=== PATIENT | female | born 1950 | race Two or more races ===

== ENCOUNTER → 2018-11-12 | Outpatient (CLI) | payer BC ==
[2016-08-24 03:31] VITALS: BP 133/61
[~2018-11-12] MED LIST: ACET325T9 PO; ALEN70TA3 PO; AMLO5TAB10 PO; AMLO5TAB4 PO; BUDE10.2 IH; CALC-31 PO; CHOL20009 PO; HYDR-3165 PO; LISI1TAB7 PO; MECL25TA3 PO; MONT10TA49 PO; NAPR-683 PO; OMEP20TA63 PO; PIMO1TAB PO; VENTOLIN HFA18 GM INH; [UNRECOGNIZED DRUG - CODE] PO
--- NOTE | 2018-11-12 17:25 | KCIC ---
EXAM: AP, oblique and lateral views of the right ankle AP, oblique and lateral views of the right foot DATE: 11/12/2018 12:00 AM INDICATION: Polyarthralgia, severe right foot and ankle pain since July. COMPARISON: No Prior FINDINGS: No evidence of acute fracture or dislocation. Ankle mortise is congruent. Talar dome is intact. Changes of prior hallux valgus surgery with bunionectomy are seen. Mild lateral subluxation of the hallux MTP sesamoids. Hallux MTP joint space narrowing with small associated osteophytes. Otherwise, Joint spaces are preserved without significant degenerative/proliferative change. IMPRESSION: 1. Changes of prior hallux valgus surgery with associated bunionectomy, healed. 2. Mild hallux MTP joint degenerative change. 3. No evidence of acute fracture or dislocation. Electronically signed by: Tai Grajeda MD (11/12/2018 5:20 PM) [facility]
== END | disposition home or self-care (01) ==
LOC: KCIC 11:47
PROVIDERS: ATTEND Family Medicine
DX: M19.071 Primary osteoarthritis, right ankle and foot (principal); M20.11 Hallux valgus (acquired), right foot
CPT/HCPCS: 73610; 73630

== ENCOUNTER → 2022-02-15 | Outpatient (CLI) | payer BC ==
[2016-08-24 03:31] VITALS: BP 133/61
[~2022-02-15] MED LIST changes: +AMLO-186 PO; -AMLO5TAB10 PO; +LISI1TAB39 PO; -LISI1TAB7 PO; +MECL-75 PO; -MECL25TA3 PO
--- NOTE | 2022-02-15 17:30 | CARD ---
MR#: [id number] Date of Study: 02/15/2022 Ordering Physician: WYATT BOYER, Referring Physician: WYATT BOYER, Tech: Cyndie Marques [facility] APPROVED REPORT EXAM: Two-dimensional and M-mode echocardiogram with Doppler and color Doppler. Other Information Quality : AverageHR: 77bpm Rhythm : NSR INDICATION Dyspnea RISK FACTORS Hypertension Obesity 2D DIMENSIONS RVDd3.7 (2.9-3.5cm)Left Atrium(2D)3.5 (1.6-4.0cm) IVSd1.0 (0.7-1.1cm)Aortic Root(2D)3.2 (2.0-3.7cm) LVDd4.7 (3.9-5.9cm)LVOT Diameter2.0 (1.8-2.4cm) PWd0.9 (0.7-1.1cm)LVDs2.5 (2.5-4.0cm) FS (%) 46.0 %SV78.9 ml Aortic Valve AoV Peak Noah.116.9cm/sAoV VTI25.9cm AO Peak GR.5.5mmHgLVOT Peak Noah.101.3cm/s AO Mean GR.3mmHgAVA (VMAX)2.79cm2 Mitral Valve MV E Adwspryb96.3cm/sMV DECEL [id number] MV A Ehqkbdxw729.5cm/sE/A Ratio0.6 Pulmonary Valve PV Peak Qvjyxejs647.7cm/s Tricuspid Valve TR P. Ufnuttvq155rb/sTR Peak Gr.29mmHg LEFT VENTRICLE The left ventricle is normal size. There is normal left ventricular wall thickness. The left ventricu lar systolic function is normal and the ejection fraction is within normal range. LV ejection fracti on is 55 to 60%. There is normal LV segmental wall motion. Transmitral Doppler flow pattern is Grade I-abnormal relaxation pattern. RIGHT VENTRICLE The right ventricle is normal size. There is normal right ventricular wall thickness. The right ventr icular systolic function is normal. ATRIA The left atrium size is normal. The right atrium size is normal. The interatrial septum is intact wit h no evidence for an atrial septal defect or patent foramen ovale as noted on 2-D or Doppler imaging. AORTIC VALVE The aortic valve is normal in structure and function. Doppler and Color Flow revealed no significant aortic regurgitation. There is no significant aortic valvular stenosis. MITRAL VALVE The mitral valve is normal in structure and function. There is no evidence of mitral valve prolapse. There is no mitral valve stenosis. Doppler and Color-flow revealed mild mitral regurgitation. TRICUSPID VALVE The tricuspid valve is normal in structure and function. Doppler and Color Flow revealed mild tricusp id regurgitation. Estimated PAP 32 mmHg. There is no tricuspid valve stenosis. PULMONIC VALVE The pulmonary valve is normal in structure and function. Doppler and Color Flow revealed mild pulmoni c valvular regurgitation. GREAT VESSELS The aortic root is normal in size. The ascending aorta is normal in size. The IVC is normal in size a nd collapses >50% with inspiration. PERICARDIAL EFFUSION There is a trace to small pericardial effusion with no evidence of hemodynamic significance. Critical Notification Critical Value: No <Conclusion> The left ventricle is normal size. The left ventricular systolic function is normal and the ejection fraction is within normal range. LV ejection fraction is 55 to 60%. Doppler and Color Flow revealed no significant aortic regurgitation. There is no significant aortic valvular stenosis. Doppler and Color-flow revealed mild mitral regurgitation. Doppler and Color Flow revealed mild tricuspid regurgitation. Estimated PAP 32 mmHg. Signed by : Jordan Goldberg MD Electronically Approved : 02/15/2022 17:29:31
== END ==
LOC: ECHO 09:52
PROVIDERS: ATTEND Internal Medicine Cardiovascular Disease
DX: I08.8 Other rheumatic multiple valve diseases (principal); R06.00 Dyspnea, unspecified
CPT/HCPCS: 93306; C8929

== ENCOUNTER 2022-03-23 07:01 | Outpatient (CLI) | payer BC ==
[2022-03-23] VITALS (11 sets, daily range): BP systolic 82–138; BP diastolic 54–89
[~2022-03-23] VITALS: Ht 149.9 cm; Wt 60.0 kg
[2022-03-23] MEDS ORDERED: LIDOCAINE 1% Multi-Dose 20 ML VIAL. ONE (07:34)
[2022-03-23] MEDS ORDERED: HEPARIN for ARTERIAL LINE 1,500 ML ONE (07:34)
[2022-03-23] MEDS ORDERED: IODIXANOL 320 MG/ML 100 ML VIAL. ONE (07:35)
[2022-03-23] MEDS ORDERED: FEXO180T81 PO (07:59)
[2022-03-23] MEDS ORDERED: CETI10TA16 PO (07:59)
[2022-03-23] MEDS ORDERED: FAMO40TA4 PO (07:59)
[2022-03-23] MEDS ORDERED: MULT-496 PO (07:59)
[2022-03-23] MEDS ORDERED: LOSA-73 PO (07:59)
[2022-03-23] MEDS ORDERED: [UNRECOGNIZED DRUG - OTHER] PO (07:59)
[2022-03-23] MEDS ORDERED: ZINC50TA39 PO (07:59)
[2022-03-23] MEDS ORDERED: CHOL10004 PO (07:59)
[2022-03-23] MEDS ORDERED: BUDE10.7 IH (07:59)
[2022-03-23] MEDS ORDERED: GABA-585 PO (07:59)
[2022-03-23] MEDS ORDERED: VITA0.4T4 PO (07:59)
[2022-03-23] MEDS ORDERED: CALC500T54 PO (07:59)
[2022-03-23] MEDS ORDERED: OMAL150V SQ (07:59)
[2022-03-23] MEDS ORDERED: fentaNYL PF VIAL 100 MCG/2 ML VIAL IV ONE (08:15)
[2022-03-23] MEDS ORDERED: LIDOCAINE 1% PF 30 ML VIAL. INJ ONE (08:15)
[2022-03-23] MEDS ORDERED: MIDAZOLAM HCL/PF 2 MG/2 ML VIAL. IV ONE (08:15)
[2022-03-23 08:19] LABS: BASO # 0.1 x10^3/uL (0.0-0.2); BASO % 1 % (0-3); EOS # 0.5 x10^3/uL (0.0-0.7); EOS % 8 % (0-3); HEMATOCRIT 41.7 % (36.0-47.0); HEMOGLOBIN 13.8 g/dL (12.0-15.5); LYMPH # 1.7 x10^3/uL (1.0-4.8); LYMPH % 29 % (24-48); MEAN CORPUSCULAR HEMOGLOBIN 30 pg (25-35); MEAN CORPUSCULAR HGB CONC 33 g/dL (31-37); MEAN CORPUSCULAR VOLUME 90 fL (79-100); MONO # 0.6 x10^3/uL (0.0-1.1); MONO % 11 % (0-9); NEUT # 3.1 x10^3/uL (1.8-7.7); NEUT % 52 % (31-73); PLATELET COUNT 267 x10^3/uL (140-400); RED BLOOD COUNT 4.65 x10^6/uL (3.50-5.40); RED CELL DISTRIBUTION WIDTH 13.8 % (11.5-14.5); WHITE BLOOD COUNT 5.9 x10^3/uL (4.0-11.0)
[2022-03-23] MEDS ORDERED: HEPARIN for IV BOLUS 10,000 UNIT/10 ML VIAL. ONE (08:21)
[2022-03-23] MEDS ORDERED: VERAPAMIL 5 MG/2 ML VIAL. ONE (08:21)
[2022-03-23] MEDS ORDERED: NITROGLYCERIN 200 MCG/2 ML SYRINGE FOR CATH/VASC LAB. ONE ×2 (08:21→09:33)
[2022-03-23] MEDS ORDERED: HEPARIN for IV BOLUS 10,000 UNIT/10 ML VIAL. IART ONE (08:30)
[2022-03-23] MEDS ORDERED: IODIXANOL 320 MG/ML 100 ML VIAL. IART ONE (08:30)
[2022-03-23] MEDS ORDERED: VERAPAMIL 5 MG/2 ML VIAL. IART ONE (08:30)
[2022-03-23] MEDS ORDERED: NITROGLYCERIN 200 MCG/2 ML SYRINGE FOR CATH/VASC LAB. IART ONE (08:30)
[2022-03-23 08:31] LABS: PROTHROMBIN TIME PATIENT 12.8 SEC (11.7-14.0)
[2022-03-23 08:32] LABS: CALCIUM 9.3 mg/dL (8.5-10.1); CREATININE 0.6 mg/dL (0.6-1.0); GFR 98.8; POTASSIUM 4.1 mmol/L (3.5-5.1)
[2022-03-23] MEDS ORDERED: CONTRAST GIVEN. MC PRN (08:45)
[2022-03-23] MEDS ORDERED: IV NORMAL SALINE 500ML BAG 500 ML IV ONE (09:45)
--- NOTE | 2022-03-23 12:40 | NUR ---
Discharge Note: DUNG PHELPS Discharge instructions and discharge home medications reviewed with Patient and a copy given. All questions have been answered and understanding verbalized. The following instructions and handouts were given: Moderate Sedation, post cardiac catheterization care Discontinued IV Patient discharged to home
--- NOTE | 2022-03-23 14:01 | CARD ---
MR#: [id number] Date of Study: 03/23/2022 Ordering Physician: WYATT BOYER, Referring Physician: WYATT BOYER, Tech: RT Shanthi(R) APPROVED REPORT Technologist: RT Shanthi(R) Nurse: Gi Bashir RN Procedure(s) performed: FL TIME: 8.0 MIN DOSE: 30 GYCM2 CONTRAST: 28 ML MODERATE SEDATION: 60 MINS RHC, LHC, Coronary angiography HISTORY The patient is a 71 year-old female with a history of : chronic lung disease, hypertension, dyslipide [place]. INDICATION The indication(s) include : unstable angina , dyspnea. CS Clinical Frailty Scale [facility] Clinical Frailty Scale: Mildly Frail Heart Failure Heart Failure: Yes If Yes, Newly Diagnosed: No If Yes, HF Type: Diastolic If Yes, NYHA Class: Class II PROCEDURE NARRATIVE The patient was brought electively to the cardiac catheterization lab. A timeout was performed confi rming the patient's name, date of , procedure, and site of procedure. All necessary personnel w ere wearing the appropriate protective equipment and radiation monitor devices. After explaining the risks and benefits of the procedure and alternatives, informed consent was obtained. (See nursing no fernanda for medications administered). The right neck and right wrist were prepped and draped in usual s terile fashion. Under 1% lidocaine local anesthesia a 6 [place] sheath was placed in the right radial artery and a 8 [place] sheath was placed in the right internal jugular vein via ultrasound guidance. A PA catheter was then advanced through the right heart chambers, pressures and saturations were obta ined. Subsequently, right and left coronary angiography was performed using standard TIG catheter.. Left ventricular end diastolic pressure was obtained with a pigtail catheter and pullback was perform ed. HEMODYNAMICS: LVEDP 12 mm Hg AO: 120/80 *No gradient on LV to aortic pullback. PCWP: 5 mmHg PA: 20/5/ RV: 29/0/4 RA: 4 Malcolm: 6.2 L/min Cardiac index 4 PA saturation: 82%, RV saturation 83%, RA saturation 84%, SVC saturation 84% FA saturation: 98% LEFT VENTRICULOGRAM: Deferred due to known normal ejection fraction by echocardiogram CORONARY ANGIOGRAPHY: LM is a large caliber vessel with normal angiographic appearance. LAD is a large caliber vessel a mid calcified eccentric 50 to 60% stenosis. Ramus is a small to moderate caliber proximally bifurcating vessel with normal angiographic appearanc e LCx is a moderate to large caliber caliber non-dominant vessel with mild luminal irregularities. OM1 is a small caliber vessel with normal angiographic appearance. RCA moderate to large caliber dominant vessel with normal angiographic appearance Interventional technique: Given the patient's calcified eccentric LAD lesion and symptoms a decision was made to proceed with p hysiologic testing. Heparin was used for anticoagulation. Through a 6 [place] EBU 3.[address]te [address] an IFR wire was placed in the distal LAD after appropriate normalization. iFR after nitroglycerin administration was 0.93. A pullback was performed across the lesion and no obvious drift was noted. At case completion all catheters and sheaths were removed and hemostasis was achieved via manual com pression. No acute complications. Conclusion 1. Normal biventricular filling pressures 2. No significant pulmonary hypertension 3. High cardiac output without any evidence of left to right shunting 4. Moderate single-vessel coronary artery disease with negative IFR of the LAD. Recommendations Aggressive Medical Therapy Signed by : Wyatt Boyer, Electronically Approved : 03/23/2022 14:00:54
== END 2022-03-23 12:42 | disposition home or self-care (01) ==
LOC: CCL 07:01
PROVIDERS: ATTEND Internal Medicine Cardiovascular Disease
DX: I20.0 Unstable angina (principal); I10 Essential (primary) hypertension; E78.00 Pure hypercholesterolemia, unspecified; J45.909 Unspecified asthma, uncomplicated; K21.9 Gastro-esophageal reflux disease without esophagitis; Z90.710 Acquired absence of both cervix and uterus; Z98.890 Other specified postprocedural states; Z79.899 Other long term (current) drug therapy; Z87.891 Personal history of nicotine dependence; Z91.040 Latex allergy status; Z88.8 Allergy status to other drugs, medicaments and biological substances
CPT/HCPCS: 36415; 76937; 80048; 85025; 85610; 93460; 93571; 99152; 99153; C1769; C1773; C1887; C1894; J1644; J2250; J3010; J3490; J7040; Q9967